=== PATIENT | male | born 1990 | race Caucasian/White ===

== ENCOUNTER 2017-06-29 17:28 | Emergency (ER) | payer OTHER ==
[~2017-06-29] VITALS: Ht 175.3 cm; Wt 81.6 kg
[~2017-06-29 17:28] MED LIST: IBUP800T19 PO; RANI300T3 PO; TRAM50TA PO
[2017-06-29 17:40] VITALS: BP 137/62
[2017-06-29] MEDS ORDERED: ACET-704 PO (18:51)
--- NOTE | 2017-06-29 18:51 | PHYS DOC ---
Past History Past Medical History: No Pertinent History Past Surgical History: No Surgical History Alcohol Use: Rarely Drug Use: None Adult General Chief Complaint Chief Complaint: BACK PAIN OR INJURY HPI HPI Patient is a 26-year-old male who fail a few steps on his buttocks presents with complaints of pain at the tailbone. Patient denies any other injury. Patient is ambulatory and ambulates with normal gait and without limitations and does not need assistance Review of Systems Review of Systems Constitutional: Denies fever or chills [] Eyes: Denies injury HENT: Denies injury Respiratory: Denies shortness of breath [] Cardiovascular: Denies injury GI: Denies injury Musculoskeletal: As per history of present illness Integument: Denies rash or skin lesions [] Neurologic: Denies headache, focal weakness or sensory changes [] All other systems were reviewed and found to be within normal limits, except as documented in this note. Allergies Allergies Allergies Coded Allergies Type Severity Reaction Last Updated Verified No Known Drug Allergies 04/15/16 No Physical Exam Physical Exam Constitutional: Well developed, well nourished, no acute distress, non-toxic appearance. [] HENT: Normocephalic, atraumatic, Eyes: EOMI, conjunctiva normal, no discharge. [] Neck: Normal range of motion, trachea midline no stridor. [] Cardiovascular: Normal perfusion Lungs & Thorax: no tachypnea Abdomen: No tenderness, no signs of injury Skin: Warm, dry, no erythema, no rash. No bruising or ecchymosis Back: No tenderness, no CVA tenderness. No midline tenderness to palpation, no step-offs. Tenderness at the coccyx tip Extremities: No tenderness, ROM intact, no edema. [] Neurologic: Alert and oriented X 3, normal motor function, no focal deficits noted. [] Psychologic: Affect normal, judgement normal, mood normal. [] Current Patient Data Vital Signs Vital Signs Date Time Temp Pulse Resp B/P (MAP) Pulse Ox O2 Delivery O2 Flow Rate FiO2 06/29/17 17:40 98.2 75 18 98 Room Air EKG EKG [] Radiology/Procedures Radiology/Procedures [] Course & Med Decision Making Course & Med Decision Making Pertinent Labs and Imaging studies reviewed. (See chart for details) [] Dragon Disclaimer Dragon Disclaimer This electronic medical record was generated, in whole or in part, using a voice recognition dictation system. Departure Departure: Impression: Primary Impression: Tailbone injury Disposition: 01 HOME, SELF-CARE Condition: LEFT WITHOUT BEING SEEN Referrals: CARMENCITA CHOWDHURY (PCP) please follow-up with your doctor for recheck and reevaluation in 3-5 days Patient Instructions: Tailbone Injury Scripts Acetaminophen With Codeine (TYLENOL WITH CODEINE #3 TABLET) 1 Each Tablet 1 TAB PO Q6HRS for 3 Days, #12 TAB Prov: Marcia DRIVER MD 06/29/17 Marcia DRIVER MD Jun 29, 2017 18:51
--- NOTE | 2017-06-30 07:54 | RAD ---
Indication: Pain at coccyx after fall. Technique: AP and lateral views of the pelvis Comparison: None Findings: The lumbosacral spine is in normal anatomic alignment. No acute fractures or compression deformities visualized. SI joints are within normal limits. Impression: No acute findings.
== END 2017-06-29 19:33 | disposition home or self-care (01) ==
LOC: ER 17:28
DX: S39.92XA Unspecified injury of lower back, initial encounter (principal); X58.XXXA Exposure to other specified factors, initial encounter; Y93.89 Activity, other specified; Y99.8 Other external cause status; Y92.89 Other specified places as the place of occurrence of the external cause
CPT/HCPCS: 72220; 99284

== ENCOUNTER 2017-11-15 20:06 | Emergency (ER) | payer OTHER ==
[~2017-11-15] VITALS: Ht 175.3 cm; Wt 83.9 kg
[~2017-11-15 20:06] MED LIST changes: +ACET-704 PO
[2017-11-15] MEDS ORDERED: IV RINGERS SOLUTION,LACTATED 1,000 ML IV SCH (20:26)
[2017-11-15] MEDS ORDERED: ASPIRIN 81 MG TAB.CHEW PO ONE (20:30)
--- NOTE | 2017-11-15 20:30 | ED.ADGEN ---
Past History Past Medical History: No Pertinent History Past Surgical History: No Surgical History Alcohol Use: Rarely Drug Use: None Adult General Chief Complaint Chief Complaint ".. 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 Patient denies any history of cardiac disorder. Patient states pain is in midsternal area. He is reproducible cough, palpitation and movement. Pt. rates pain as 7 out of 10. Nothing he does makes it better. No history of early onset cardiac disease in family. Patient up-to- date with vaccinations. No overseas travel. No specific ill contacts. Patient normally follows at [facility]. Patient has been taking muscle building supplements Review of Systems Review of Systems Constitutional: Denies fever or chills [] Eyes: Denies change in visual acuity, redness, or eye pain [] HENT: Denies nasal congestion or sore throat [] Respiratory: Denies cough or shortness of breath [] Cardiovascular: No additional information not addressed in HPI [] GI: Denies abdominal pain, nausea, vomiting, bloody stools or diarrhea [] : Denies dysuria or hematuria [] Musculoskeletal: Denies back pain or joint pain [] Integument: Denies rash or skin lesions [] Neurologic: Denies headache, focal weakness or sensory changes [] Endocrine: Denies polyuria or polydipsia [] All other systems were reviewed and found to be within normal limits, except as documented in this note. Family History Family History Noncontributory Current Medications Current Medications Current Medications Medications (Trade) Dose Ordered Sig/[facility] Start Time Stop Time Status Last Admin Dose Admin Aspirin (Children'S Aspirin) 324 mg 1X ONCE 11/15/17 20:30 11/15/17 20:31 DC 11/15/17 20:54 324 MG Lactated Ringer's 1,000 ml @ 1,000 mls/hr Q1H 11/15/17 20:26 11/15/17 21:25 DC 11/15/17 20:26 1,000 MLS/HR Allergies Allergies Allergies Coded Allergies Type Severity Reaction Last Updated Verified No Known Drug Allergies 04/15/16 No Physical Exam Physical Exam Constitutional: Well developed, well nourished, moderately acute distress, non- toxic appearance. [] HENT: Normocephalic, atraumatic, bilateral external ears normal, oropharynx moist, no oral exudates, nose normal. [] Eyes: PERRLA, EOMI, conjunctiva normal, no discharge. [] Neck: Normal range of motion, no tenderness, supple, no stridor. [] Cardiovascular: Bradycardia at this Heart rate regular rhythm, no murmur [] Lungs & Thorax: Bilateral breath sounds clear to auscultation []midsternal chest pain with palpation Abdomen: Bowel sounds normal, soft, no tenderness, no masses, no pulsatile masses. [] Skin: Warm, dry, no erythema, no rash. [] Back: No tenderness, no CVA tenderness. [] Extremities: No tenderness, no cyanosis, no clubbing, ROM intact, no edema. [] No Cording appreciated Neurologic: Alert and oriented X 3, normal motor function, normal sensory function, no focal deficits noted. [] Psychologic: Affect anxious, judgement normal, mood normal. [] Current Patient Data Vital Signs Vital Signs Date Time Temp Pulse Resp B/P (MAP) Pulse Ox O2 Delivery O2 Flow Rate FiO2 11/15/17 22:58 20 Room Air 11/15/17 21:18 77 96 11/15/17 21:18 132/48 (76) Lab Results Laboratory Tests Test 11/15/17 21:05 11/15/17 22:38 White Blood Count 5.8 x10^3/uL (4.0-11.0) Red Blood Count 5.22 x10^6/uL (4.30-5.70) Hemoglobin 15.9 g/dL (13.0-17.5) Hematocrit 45.0 % (39.0-53.0) Mean Corpuscular Volume 86 fL (79-100) Mean Corpuscular Hemoglobin 31 pg (25-35) Mean Corpuscular Hemoglobin Concent 35 g/dL (31-37) Red Cell Distribution Width 12.9 % (11.5-14.5) Platelet Count 208 x10^3/uL (140-400) Neutrophils (%) (Auto) 55 % (31-73) Lymphocytes (%) (Auto) 35 % (24-48) Monocytes (%) (Auto) 7 % (0-9) Eosinophils (%) (Auto) 2 % (0-3) Basophils (%) (Auto) 1 % (0-3) Neutrophils # (Auto) 3.2 x10^3uL (1.8-7.7) Lymphocytes # (Auto) 2.0 x10^3/uL (1.0-4.8) Monocytes # (Auto) 0.4 x10^3/uL (0.0-1.1) Eosinophils # (Auto) 0.1 x10^3/uL (0.0-0.7) Basophils # (Auto) 0.0 x10^3/uL (0.0-0.2) Prothrombin Time 11.2 SEC (9.4-11.4) Prothrombin Time INR 1.1 (0.9-1.1) PTT 27 SEC (23-33) D-Dimer (Yessenia) < 0.19 mg/L (0.00-0.50) Urine Collection Type Unknown Urine Color Yellow Urine Clarity Clear Urine pH 6.0 Urine Specific [place] 1.025 Urine Protein Neg (NEG-TRACE) Urine Glucose (UA) Neg mg/dL (NEG) Urine Ketones (Stick) Neg mg/dL (NEG) Urine Blood Neg (NEG) Urine Nitrite Neg (NEG) Urine Bilirubin Neg (NEG) Urine Urobilinogen Dipstick 0.2 mg/dL (0.2 mg/dL) Urine Leukocyte Esterase Neg (NEG) Urine RBC 0 /HPF (0-2) Urine WBC Occ /HPF (0-4) Urine Squamous Epithelial Cells Occ /LPF Urine Bacteria 0 /HPF (0-FEW) Sodium Level 144 mmol/L (136-145) Potassium Level 3.6 mmol/L (3.5-5.1) Chloride Level 106 mmol/L (98-107) Carbon Dioxide Level 28 mmol/L (21-32) Anion Gap 10 (6-14) Blood Urea Nitrogen 21 mg/dL (8-26) Creatinine 1.1 mg/dL (0.7-1.3) Estimated GFR (Cockcroft-Gault) 80.9 Glucose Level 80 mg/dL (70-99) Calcium Level 8.9 mg/dL (8.5-10.1) Magnesium Level 2.3 mg/dL (1.8-2.4) Total Bilirubin 1.0 mg/dL (0.2-1.0) Direct Bilirubin 0.2 mg/dL (0.0-0.2) Aspartate Amino Transferase (AST) 47 U/L (15-37) H Alanine Aminotransferase (ALT) 52 U/L (16-63) Alkaline Phosphatase 96 U/L (46-116) Creatine Kinase 1489 U/L (39-308) H Creatine Kinase MB (Mass) 3.4 ng/mL (0.0-3.6) Creatine Kinase MB Relative Index 0.2 % (0-4) Troponin I Quantitative < 0.017 ng/mL (0-0.055) VT-Kcc-T-Type Natriuretic Peptide 7 pg/mL (0-124) Total Protein 7.1 g/dL (6.4-8.2) Albumin 4.0 g/dL (3.4-5.0) Lipase 147 U/L (73-393) Urine Opiates Screen Neg (NEG) Urine Methadone Screen Neg (NEG) Urine Barbiturates Neg (NEG) Urine Phencyclidine Screen Neg (NEG) Urine Amphetamine/Methamphetamine Neg (NEG) Urine Benzodiazepines Screen Neg (NEG) Urine Cocaine Screen Neg (NEG) Urine Cannabinoids Screen Neg (NEG) Urine Ethyl Alcohol Neg (NEG) POC Troponin I 0.01 ng/ml (<0.08) EKG EKG [] Radiology/Procedures Radiology/Procedures [] Course & Med Decision Making Course & Med Decision Making Pertinent Labs and Imaging studies reviewed. (See chart for details). Must push fluids. Take daily aspirin. Take ibuprofen 400 mg up 4 times a day for pain. Follow-up primary care. Consider outpatient stress testing. Return if any concerns. Must hold weightlifting supplements. [] Final Impression Final Impression 1. Chest Pain[]- chest wall 2. Elevated CK- 1,489 Dragon Disclaimer Dragon Disclaimer This electronic medical record was generated, in whole or in part, using a voice recognition dictation system. VISHAL KUHN MD November 15, 2017 20:30
[2017-11-15 21:18] VITALS: BP 132/48
[2017-11-15 21:30] LABS: BASO % 1 % (0-3); EOS # 0.1 x10^3/uL (0.0-0.7); EOS % 2 % (0-3); HEMOGLOBIN 15.9 g/dL (13.0-17.5); LYMPH % 35 % (24-48); MEAN CORPUSCULAR HEMOGLOBIN 31 pg (25-35); MEAN CORPUSCULAR HGB CONC 35 g/dL (31-37); MEAN CORPUSCULAR VOLUME 86 fL (79-100); MONO # 0.4 x10^3/uL (0.0-1.1); MONO % 7 % (0-9); NEUT # 3.2 x10^3uL (1.8-7.7); NEUT % 55 % (31-73); PLATELET COUNT 208 x10^3/uL (140-400); RED BLOOD COUNT 5.22 x10^6/uL (4.30-5.70); RED CELL DISTRIBUTION WIDTH 12.9 % (11.5-14.5); WHITE BLOOD COUNT 5.8 x10^3/uL (4.0-11.0)
[2017-11-15 21:51] LABS: AMPHETAMINE/METHAMPHETAMINE NEG (NEG); BARBITURATES NEG (NEG); BENZODIAZEPINES NEG (NEG); CANNABINOIDS NEG (NEG); COCAINE NEG (NEG); METHADONE NEG (NEG); OPIATES NEG (NEG); PHENCYCLIDINE NEG (NEG)
[2017-11-15 22:00] LABS: BACTERIA,URINE 0 /HPF (0-FEW); BILIRUBIN,URINE NEG (NEG); CLARITY,URINE CLEAR; COLOR,URINE YELLOW; GLUCOSE,URINE NEG (NEG); NITRITE,URINE NEG (NEG); RBC,URINE 0 /HPF (0-2); SQUAMOUS EPITHELIAL CELL,UR OCC /LPF; UROBILINOGEN,URINE 0.2 mg/dL (0.2 mg/dL); WBC,URINE OCC /HPF (0-4)
[2017-11-15 22:15] LABS: CALCIUM 8.9 mg/dL (8.5-10.1); CREATININE 1.1 mg/dL (0.7-1.3); DIRECT BILIRUBIN 0.2 mg/dL (0.0-0.2); GFR 80.9; MAGNESIUM 2.3 mg/dL (1.8-2.4); POTASSIUM 3.6 mmol/L (3.5-5.1); TOTAL PROTEIN 7.1 g/dL (6.4-8.2)
[2017-11-15] MEDS ORDERED: ASPI-630 PO (22:16)
[2017-11-15] MEDS ORDERED: IBUP400T18 PO (22:16)
--- NOTE | 2017-11-15 22:27 | EKG ---
[address] [address] Test Date: 2017-11-15 Test Time: 20:16:00 Pat Name: LAM LOYA Department: Room: Gender: M [employer] Tester: SHYAM : 1990 Requested By: VISHAL KUHN Order Number: [id number] Reading MD: Measurements Intervals [place] Rate: 49 P: 36 UT: 178 QRS: 40 QRSD: 98 T: 14 QT: 408 QTc: 368 Interpretive Statements SINUS BRADYCARDIA QRS(T) CONTOUR ABNORMALITY CONSIDER ANTEROLATERAL MYOCARDIAL DAMAGE POSSIBLY ABNORMAL ECG RI6.01 No previous ECG available for comparison
--- NOTE | 2017-11-15 22:48 | EKG ---
[address] [address] Test Date: 2017-11-15 Test Time: 22:43:45 Pat Name: LAM LOYA Department: Room: Gender: M Crime Scene Technician: SHYAM : 1990 Requested By: VISHAL KUHN Order Number: [id number] Reading MD: Measurements Intervals [place] Rate: 46 P: 34 KS: 170 QRS: 34 QRSD: 98 T: 9 QT: 436 QTc: 382 Interpretive Statements SINUS BRADYCARDIA ATRIAL PREMATURE COMPLEX(ES) QRS(T) CONTOUR ABNORMALITY CONSIDER ANTEROSEPTAL MYOCARDIAL DAMAGE POSSIBLY ABNORMAL ECG RI6.01 No previous ECG available for comparison
--- NOTE | 2017-11-16 09:07 | RAD ---
CHEST PA LATERAL History: Chest pain at sternum Comparison: None. Findings: Single PA view chest and 2 lateral views of the chest are submitted. There is no infiltrate, pneumothorax, or effusion. The cardiac silhouette is within normal limits in size. The trachea is in the midline. No acute osseous abnormality is identified. Impression: 1. There is no evidence of acute cardiopulmonary disease. Electronically signed by: Elvin Kendrick MD (11/16/2017 9:03 AM) [facility]
== END 2017-11-15 22:58 | disposition home or self-care (01) ==
LOC: ER 20:06
DX: R07.89 Other chest pain (principal); R74.8 Abnormal levels of other serum enzymes
CPT/HCPCS: 36415; 71046; 80048; 80076; 80307; 81001; 82553; 83690; 83735; 83880; 84443; 84484; 85025; 85379; 85610; 85730; 93005; 99285; J7120; G0479

== ENCOUNTER 2018-07-24 11:45 | Emergency (ER) | payer OTHER ==
[~2018-07-24] VITALS: Ht 175.3 cm; Wt 86.2 kg
[~2018-07-24 11:45] MED LIST changes: +ASPI-630 PO; +IBUP400T18 PO
--- NOTE | 2018-07-24 12:10 | RAD ---
Two-view abdomen dated 07/24/2018. No comparison available. Clinical data indication: Abdominal pain. Constipation. FINDINGS: 2 supine images submitted. Nondilated gas-filled loops of bowel throughout. No abnormal calcification. Small amount stool within the colon. IMPRESSION: Nonobstructive bowel gas pattern. Electronically signed by: Alexis Robles MD (07/24/2018 12:05 PM) [id number]
--- NOTE | 2018-07-24 12:13 | PHYS DOC ---
Past History Past Medical History: No Pertinent History Past Surgical History: No Surgical History Alcohol Use: Heavy Drug Use: None Adult General Chief Complaint Chief Complaint: CONSTIPATION HPI HPI 27-year-old male presents with concern for constipation. Patient went to local [facility] clinic for his constipation. He was told to take magnesium citrate. He did this yesterday and had multiple watery stools. He continues to feel like he has rectal fullness. Patient denies fever or chills. She said no abdominal pain. The patient doesn't bisexual and had sex with a male 1 week ago. He has had normal bowel movements since that encounter. He denies ingesting anything other than food. Review of Systems Review of Systems Constitutional: Denies fever or chills [] Eyes: Denies change in visual acuity, redness, or eye pain [] HENT: Denies nasal congestion or sore throat [] Respiratory: Denies cough or shortness of breath [] Cardiovascular: No additional information not addressed in HPI [] GI: Rectal fullness[] : Denies dysuria or hematuria [] Musculoskeletal: Denies back pain or joint pain [] Integument: Denies rash or skin lesions [] Neurologic: Denies headache, focal weakness or sensory changes [] Endocrine: Denies polyuria or polydipsia [] All other systems were reviewed and found to be within normal limits, except as documented in this note. Allergies Allergies Allergies Coded Allergies Type Severity Reaction Last Updated Verified No Known Drug Allergies 07/24/18 No Physical Exam Physical Exam Constitutional: Well developed, well nourished, no acute distress, non-toxic appearance. [] HENT: Normocephalic, atraumatic, bilateral external ears normal, oropharynx moist, no oral exudates, nose normal. [] Eyes: PERRLA, EOMI, conjunctiva normal, no discharge. [] Neck: Normal range of motion, no tenderness, supple, no stridor. [] Cardiovascular:Heart rate regular rhythm, no murmur [] Lungs & Thorax: Bilateral breath sounds clear to auscultation [] Abdomen: Bowel sounds normal, soft, no tenderness, no masses, no pulsatile masses. [] Skin: Warm, dry, no erythema, no rash. [] Back: No tenderness, no CVA tenderness. [] Extremities: No tenderness, no cyanosis, no clubbing, ROM intact, no edema. [] Neurologic: Alert and oriented X 3, normal motor function, normal sensory function, no focal deficits noted. [] Psychologic: Affect normal, judgement normal, mood normal. Rectal Exam: Normal external appearance, no pain with internal exam, no palpable stool[] Current Patient Data Vital Signs Vital Signs Date Time Temp Pulse Resp B/P (MAP) Pulse Ox O2 Delivery O2 Flow Rate FiO2 07/24/18 11:52 97.9 58 17 99 Room Air EKG EKG [] Radiology/Procedures Radiology/Procedures [] Impressions: Two-view abdomen dated 07/24/2018. No comparison available. Clinical data indication: Abdominal pain. Constipation. FINDINGS: 2 supine images submitted. Nondilated gas-filled loops of bowel throughout. No abnormal calcification. Small amount stool within the colon. IMPRESSION: Nonobstructive bowel gas pattern. Electronically signed by: Darline Robles MD (07/24/2018 12:05 PM) [id number] DICTATED AND SIGNED BY: DARLINE ROBLES MD DATE: 07/24/18 1205 CC: PORTER CALDWELL DO; YOSEF CONTI PA-C Course & Med Decision Making Course & Med Decision Making Pertinent Labs and Imaging studies reviewed. (See chart for details) The patient's KUB shows an empty colon, but there is some stool in the rectal vault. I will attempt manual disimpaction. Is unable to palpate any stool mainly. We will attempt an enema. He enema was successful and the patient had school. He is feeling much better at this time. He is stable for discharge. [] Dragon Disclaimer Dragon Disclaimer This electronic medical record was generated, in whole or in part, using a voice recognition dictation system. Departure Departure: Impression: Primary Impression: Rectal fullness Additional Impression: Constipation Disposition: 01 HOME, SELF-CARE Condition: STABLE Referrals: YOSEF CONTI PA-C (PCP) Patient Instructions: Constipation, Adult, [id number] Problem Qualifiers Additional Impression: Constipation Constipation type: unspecified constipation type Qualified Codes: K59.00 - Constipation, unspecified PORTER CALDWELL DO Jul 24, 2018 12:13
[2018-07-24] MEDS ORDERED: SODIUM PHOSPHATES 19/7GM 133 ML ENEMA. PR ONE (12:45)
[2018-07-24 14:05] VITALS: BP 155/87
== END 2018-07-24 14:06 | disposition home or self-care (01) ==
LOC: ER 11:45
DX: K59.00 Constipation, unspecified (principal); K62.89 Other specified diseases of anus and rectum; F10.20 Alcohol dependence, uncomplicated; Y90.9 Presence of alcohol in blood, level not specified
CPT/HCPCS: 74018; 99284